=== PATIENT | female | born 1985 | race Caucasian/White ===

== ENCOUNTER → 2022-01-19 | Outpatient (CLI) | payer OTHER ==
[~2022-01-19] MED LIST: DIPH25CA58 PO; HYDR-2759 PO; LEVO1IUD3 VG; ONDA4TAB12 PO; OXYC1TAB15 PO
== END ==
LOC: LAB 08:37
PROVIDERS: ATTEND Surgery
DX: Z01.812 Encounter for preprocedural laboratory examination (principal); Z20.822 Contact with and (suspected) exposure to COVID-19
CPT/HCPCS: U0003

== ENCOUNTER 2022-01-20 07:50 | Day surgery (SDC) | payer OTHER ==
[~2022-01-20] VITALS: Ht 171.4 cm; Wt 147.0 kg
[~2022-01-20 07:50] MED LIST changes: -DIPH25CA58 PO; -HYDR-2759 PO; +HYDROmorphone 2 MG/ML INJ. IVP PRN; +IV RINGERS,LACTATED 1000ML 1,000 ML IV SCH; -LEVO1IUD3 VG; +MORPHINE SULFATE 2 MG/ML INJ. IVP PRN; -ONDA4TAB12 PO; -OXYC1TAB15 PO; +ceFAZolin SODIUM 3 GM in IV DEXTROSE 5% 100ML 100 ML IV PRN; +fentaNYL PF VIAL 100 MCG/2 ML VIAL IVP PRN
[2022-01-20] MEDS ORDERED: PROPOFOL 10 MG/ML (20ML) VIAL. IV ONE (07:54)
[2022-01-20] MEDS ORDERED: ROCURONIUM 50 MG/5 ML VIAL. ONE (07:54)
[2022-01-20] MEDS ORDERED: fentaNYL PF VIAL 100 MCG/2 ML VIAL ONE ×2 (07:55→11:05)
[2022-01-20] MEDS ORDERED: HYDR-2759 PO (08:21)
[2022-01-20] MEDS ORDERED: LEVO1IUD3 VG (08:21)
[2022-01-20] MEDS ORDERED: ONDA4TAB12 PO (08:21)
[2022-01-20] MEDS ORDERED: DIPH25CA58 PO (08:21)
[2022-01-20] MEDS ORDERED: FAMOTIDINE 20 MG/2 ML VIAL IVP ONE (08:45)
[2022-01-20] MEDS ORDERED: IOHEXOL 300 MG/ML 50 ML VIAL. ONE (08:53)
[2022-01-20] MEDS ORDERED: BUPIVACAINE-EPI 0.5% 30 ML VIAL KIT. ONE (08:53)
[2022-01-20] MEDS ORDERED: ONDANSETRON PF 4 MG/2 ML VIAL. ONE (08:55)
[2022-01-20] MEDS ORDERED: DEXAMETHASONE SOD PHOS 4 MG/ML VIAL ONE (08:56)
[2022-01-20] MEDS ORDERED: SUGAMMADEX SODIUM 200 MG/2 ML VIAL. IVP ONE (09:30)
[2022-01-20] MEDS ORDERED: HYDROmorphone 2 MG/ML INJ. ONE (09:34)
[2022-01-20] MEDS ORDERED: FAMOTIDINE 20 MG/2 ML VIAL ONE (09:53)
--- NOTE | 2022-01-20 10:16 | RAD ---
Interoperative Cholangiogram: Technique: Contrast is introduced into the cystic duct during the performance of a laparoscopic chol ecystectomy and spot views were obtained on a portable C-arm for an intraoperative cholangiogram. Total fluoroscopic time: 14 seconds Total fluoroscopic spot images: 2 Findings: The central biliary tree is visualized and appears normal. No filling defects are seen. Contrast is s een in the duodenum. Impression: No evidence of a retained stone. Electronically signed by: Clarence Brito MD (01/20/2022 10:14 AM) [id number]
--- NOTE | 2022-01-20 10:27 | PDOC4 ---
Operative Note Operative Note Operative Note: Preoperative Diagnosis: Calculus cholecystitis Postoperative Diagnosis: Same Procedure: Laparoscopic cholecystectomy with intraoperative cholangiogram Surgeons: [employer] Specialist: Brandon PACHECO, Zeferino Salguero, MS 4 Anesthesia: Gen. Estimated Blood Loss: 10 mL Specimen: Gallbladder to pathology Drains: None Complications: None Indications: The patient is a 36-year-old female who was referred due to calculus cholecystitis. Surgical treatment was offered by means of a laparoscopic cholecystectomy. The risks of surgery were discussed which include bleeding, infection, bile duct injury, bile leak, pain, the potential for additional surgeries or procedures. The patient understands and would like to proceed. Description: The patient was taken to the operating room and laid supine on the operating table. General anesthesia was performed. The abdomen was prepped with ChloraPrep and draped in a standard surgical fashion. A small infraumbilical incision was made with a scalpel. The Veress needle was then inserted and a pneumoperitoneum was then created. A 5 mm trocar was then inserted and the laparoscope was introduced. In the upper midabdomen an 11 mm trocar was inserted and in the right upper quadrant two 5 mm trocars were inserted. The gallbladder was retracted cephalad. The gallbladder wall was thickened with edema consistent with calculus cholecystitis. The cystic duct was dissected free from surrounding tissues. One clip was placed on the duct near the gallbladder junction. An opening was made in the duct and a cholangiocatheter placed within and secured with a clip. Using contrast dye and fluoroscopy an intraoperative cholangiogram was performed that appeared unremarkable. The clip and catheter were then withdrawn. Three clips were placed on the cystic duct and it was divided. The cystic artery was then identified, dissected free, doubly clipped and divided as well. The gallbladder was then mobilized away from the liver with cautery. The gallbladder was then placed in an endoscopic bag and extracted at the superior trocar site. The fascia there was closed with interrupted 0 PDS sutures. All blood and irrigation fluid was suctioned and hemostasis was good. The remaining ports were removed and the pneumoperitoneum was relieved. The skin incisions were closed using 4-0 Monocryl suture. Steri-Strips and dressings were then applied. The patient tolerated the procedure well and was sent to the recovery room in stable condition. At the end of the case all counts were correct. SALLY MCELROY MD Jan 20, 2022 10:27
[2022-01-20] MEDS ORDERED: OXYC1TAB15 PO (10:29)
--- NOTE | 2022-01-20 10:31 | DISCH ---
DISCHARGE INSTRUCTIONS Condition on Discharge Condition on Discharge: Stable Activity After Discharge Activity Instructions for Disc: Other, see below (No lifting over 20 lbs X 4 weeks, no driving while taking pain meds) Diet after Discharge Diet after Discharge: Regular Wound Incision Care Wound/Incision Care: Other, see below (may remove bandaids and shower tomorrow; steristrips will fall off on their own) Follow-Up Follow up with: Dr Mcelroy in office in 2 weeks, call for appointment [phone] SALLY MCELROY MD Jan 20, 2022 10:31
[2022-01-20] MEDS ORDERED: NALOXONE 0.4 MG/ML VIAL. ONE (10:43)
[2022-01-20] MEDS ORDERED: PROCHLORPERAZINE 10 MG/2 ML VIAL. ONE (11:05)
[2022-01-20] MEDS: PROCHLORPERAZINE 10 MG/2 ML VIAL. IVP PRN ×2 (11:08→11:17)
[2022-01-20] MEDS: fentaNYL PF VIAL 100 MCG/2 ML VIAL IVP PRN ×2 (11:09→11:18)
[2022-01-20] MEDS ORDERED: oxyCODONE/APAP 5/325 1 TAB TABLET PO ONE ×2 (11:15)
[2022-01-20 11:45] VITALS: BP 141/90
[2022-01-20] MEDS ORDERED: FAMOTIDINE 20 MG/2 ML VIAL IVP SCH (21:00)
--- NOTE | 2022-01-24 19:12 | PATHOLOGY ---
[facility] Accession Number: [id number] . 01 Material submitted: . gallbladder - GALLBLADDER WITH CONTENTS . 01 Clinical history: . SYMPTOMATIC CHOLELITHIASIS . 02 Diagnosis: Gallbladder, laparoscopic cholecystectomy: - Cholelithiasis. - Chronic and focal acute cholecystitis with increased eosinophils. ([facility]; 01/24/2022) P 01/24/2022 1201 Local . 02 Comment: There is no evidence of malignancy. ([facility]; 01/24/2022) . 02 Electronically signed: . Jamarcus Tabor MD, Pathologist NPI- [id number] . 01 Gross description: . Fixative: Formalin Labeled: Gallbladder with contents Specimen received: Intact Dimensions: 11.2 x 3.8 x 2.7 cm Serosa: Smooth, [place]-pink and glistening with a roughened hepatic bed Lymph node: No Mucosa: Velvety, [place]-pink Average wall thickness: 0.5 cm Calculi: 2 irregular, [place]-green nodular calculi measuring 1.1 x 0.9 x 0.5 cm and 3.4 x 2.1 x 2.1 cm Abnormalities: No A1- [employer] body, fundus, and the cystic duct margin(inked black). ([facility]; 01/21/2022) GZA/GZA 01/21/2022 0902 Local . 02 Pathologist provided ICD-10: K80.12 . 02 CPT . 609352 Specimen Comment: A courtesy copy of this report has been sent to [phone] Specimen Comment: Report sent to Specimen Comment: A duplicate report has been generated due to demographic updates. Performed at: [address], [place] [id number] MD Anam Sanchez MD Phone: [phone] Performed at: [address] [id number] MD Jamarcus Tabor MD Phone: [phone]
== END 2022-01-20 12:05 | disposition home or self-care (01) ==
LOC: SURG 07:50
PROVIDERS: ATTEND Surgery
DX: K80.12 Calculus of gallbladder with acute and chronic cholecystitis without obstruction (principal); J45.909 Unspecified asthma, uncomplicated; K21.9 Gastro-esophageal reflux disease without esophagitis; Z87.891 Personal history of nicotine dependence; Z79.899 Other long term (current) drug therapy; Z98.890 Other specified postprocedural states; Z72.89 Other problems related to lifestyle
CPT/HCPCS: 47563; 74300; 81025; A4213; A4314; A4364; A4930; A6219; C1887; J0780; J1100; J1170; J2310; J2405; J2704; J3010; J3490; Q9967; A4452; A4657